=== PATIENT | female | born 1955 | race Caucasian/White ===

== ENCOUNTER 2025-10-05 14:23 | Inpatient (IN) | payer MEDICARE ==
[~2025-10-05] VITALS: Ht 172.7 cm; Wt 74.8 kg
[2025-10-05 15:01] LABS: *BILIRUBIN,URIN NEGATIVE (NEGATIVE); *BLOOD, URINE NEGATIVE (NEGATIVE); *CLARITY,URINE CLEAR (CLEAR); *COLOR,URINE YELLOW (YELLOW); *KETONES,URINE NEGATIVE (NEGATIVE); *PROTEIN,URINE TRACE (NEGATIVE); *UROBILINOGEN,URINE 0.2 E.U./dl (NORMAL); LEUKOCYTE ESTERASE ,URINE NEGATIVE (NEGATIVE); NITRITE, URINE POSITIVE (NEGATIVE); UGLUCOSE NEGATIVE (NEGATIVE)
[2025-10-05 15:10] LABS: *AMPHETAMINE, URINE NEGATIVE (NEGATIVE); *BARBITURATE, URINE NEGATIVE (NEGATIVE); *BENZODIAZEPINE, URINE NEGATIVE (NEGATIVE); *CANNABINOID, URINE NEGATIVE (NEGATIVE); *COCCAINE, URINE NEGATIVE (NEGATIVE); *OPIATE, URINE POSITIVE (NEGATIVE); *PHENCYCLIDINE SCREEN,URINE NEGATIVE (NEGATIVE); FENTANYL, URINE NEGATIVE (NEGATIVE)
[2025-10-05] MEDS ORDERED: CEFTRIAXONE /D5W 50ML IVPB **ER PYXIS IV ONE (15:11)
[2025-10-05 15:13] LABS: SQUAMOUS EPITHELIAL CELL,UR FEW /HPF (NONE SEEN)
[2025-10-05 15:14] LABS: URINE AMORPHOUS URATE MODERATE /HPF
[2025-10-05] MEDS: IV NORMAL SALINE 1000 ML BAG IV ONE (15:16)
[2025-10-05 15:18] LABS: PLATELET COUNT (AUTO) 199 K/uL (179-408); RED BLOOD CELL COUNT(AUTO) 4.60 MIL/uL (3.63-4.92); RED CELL DISTRIBUTION WIDTH 13.1 % (12.3-17.7); WHITE BLOOD COUNT (AUTO) 7.5 K/uL (3.8-11.8)
[2025-10-05 15:32] LABS: CREATININE 0.6 mg/dL (0.6-1.3); SODIUM SERUM 141 mmol/L (136-145); UREA NITROGEN, BLOOD 15 mg/dL (7-18)
[2025-10-05 15:35] LABS: ETHANOL < 3 MG/DL (0-10)
[2025-10-05 15:37] LABS: ASPARTATE AMINOTRANSFERASE 28 U/L (15-37); TOTAL PROTEIN, SERUM 6.9 g/dL (6.4-8.2)
[2025-10-05] MEDS ORDERED: MIRT7.5T10 PO (15:49)
[2025-10-05] MEDS ORDERED: ERGO125010 PO (15:49)
[2025-10-05] MEDS ORDERED: HYDR59LO7 TP (15:49)
[2025-10-05] MEDS ORDERED: BREX0.5T PO (15:49)
[2025-10-05] MEDS ORDERED: [UNRECOGNIZED DRUG - CODE] PO (15:49)
[2025-10-05] MEDS ORDERED: IRON PO (15:49)
[2025-10-05] MEDS ORDERED: LORA-258 PO (15:49)
[2025-10-05] MEDS ORDERED: LEVO50TA8 PO (15:49)
[2025-10-05 16:00] VITALS: BP 112/86
[2025-10-05] MEDS ORDERED: ONDANSETRON 4 MG/2 ML VIAL IV PRN (16:30)
[2025-10-05] MEDS ORDERED: MAGNESIUM HYDROXIDE 30 ML LIQUID UDC PO PRN (16:30)
[2025-10-05] MEDS ORDERED: REMEDY ESSENTIAL ZINC PASTE 113 GM TP PRN (16:30)
[2025-10-05] MEDS: IV 1/2NS 1000 ML 1,000 ML IV PRN (17:00)
[2025-10-05] MEDS ORDERED: BREXPIPRAZOLE 0.5 MG PO SCH (17:00)
[2025-10-05 17:06] VITALS: BP 128/68; TEMP 98.1; O2SAT 94
[2025-10-05] MEDS ORDERED: CLON0.5T4 PO (17:25)
[2025-10-05] MEDS ORDERED: HYDROCORTISONE 2% TOP (17:27)
[2025-10-05 19:10] VITALS: BP 104/65; TEMP 99.3; O2SAT 94
[2025-10-05] MEDS: ENOXAPARIN SODIUM 40 MG/0.4 ML DISP.SYRIN SQ SCH (20:26)
[2025-10-05] MEDS: MIRTAZAPINE 15 MG TABLET PO SCH (20:27)
[2025-10-06] MEDS: LEVOTHYROXINE SODIUM 50 MCG TABLET PO SCH (06:24)
[2025-10-06] MEDS: PANTOPRAZOLE SODIUM 40 MG TABLET.DR PO SCH (06:24)
[2025-10-06 07:19] LABS: PLATELET COUNT (AUTO) 163 K/uL (179-408); RED BLOOD CELL COUNT(AUTO) 4.27 MIL/uL (3.63-4.92); RED CELL DISTRIBUTION WIDTH 13.0 % (12.3-17.7); WHITE BLOOD COUNT (AUTO) 4.8 K/uL (3.8-11.8)
[2025-10-06 07:30] LABS: CREATININE 0.6 mg/dL (0.6-1.3); SODIUM SERUM 141.0 mmol/L (136-145); UREA NITROGEN, BLOOD 9.0 mg/dL (7-18)
[2025-10-06 08:00] VITALS: BP 119/73; TEMP 98.6; O2SAT 97
[2025-10-06] MEDS ORDERED: FERROUS SULFATE SLOW RELEASE 45 MG (ELEMENTAL) TABEC PO SCH (09:00)
[2025-10-06 11:08] VITALS: BP 120/72; TEMP 98.7; O2SAT 96
[2025-10-06] MEDS: FERROUS SULFATE 300 MG/5 ML LIQUID UDC PO SCH (11:18)
[2025-10-06 15:12] VITALS: BP 115/72; TEMP 98.8; O2SAT 96
[2025-10-06] MEDS: ACETAMINOPHEN 325 MG TABLET PO PRN (15:29)
[2025-10-06 19:40] VITALS: BP 132/63; TEMP 98.4; O2SAT 96
[2025-10-07 00:27] VITALS: BP 129/68; TEMP 98.8; O2SAT 100
[2025-10-07 04:39] VITALS: BP 116/64; TEMP 99.5; O2SAT 96
[2025-10-07 06:45] LABS: PLATELET COUNT (AUTO) 184 K/uL (179-408); RED BLOOD CELL COUNT(AUTO) 4.49 MIL/uL (3.63-4.92); RED CELL DISTRIBUTION WIDTH 13.3 % (12.3-17.7); WHITE BLOOD COUNT (AUTO) 5.8 K/uL (3.8-11.8)
[2025-10-07 06:58] LABS: CREATININE 0.5 mg/dL (0.6-1.3); SODIUM SERUM 139.0 mmol/L (136-145); UREA NITROGEN, BLOOD 7.0 mg/dL (7-18)
[2025-10-07 08:14] VITALS: BP 128/74; TEMP 97.8; O2SAT 98
[2025-10-07] MEDS: ALPRAZOLAM 0.25 MG TABLET PO PRN (10:19)
[2025-10-07 12:00] VITALS: BP 116/71; TEMP 97.8; O2SAT 95
[2025-10-07 16:07] VITALS: BP 107/61; TEMP 98.9; O2SAT 96
[2025-10-07] MEDS: CLOTRIMAZOLE 1% CREAM 30 GM TUBE TOP SCH (16:36)
[2025-10-07 19:49] VITALS: BP 131/68; TEMP 99.5; O2SAT 97
[2025-10-08 00:12] VITALS: BP 118/73; TEMP 98.5; O2SAT 93
[2025-10-08 04:48] VITALS: BP 126/66; TEMP 97.6; O2SAT 97
[2025-10-08 07:40] VITALS: BP 117/49; TEMP 98.5; O2SAT 98
[2025-10-08 11:44] VITALS: BP 121/68; TEMP 97.8; O2SAT 97
[2025-10-08 15:48] VITALS: BP 143/84; TEMP 97.7; O2SAT 98
[2025-10-08 19:15] VITALS: BP 126/91; TEMP 98.3; O2SAT 97
[2025-10-09 00:40] VITALS: BP 139/92; TEMP 97.5; O2SAT 98
[2025-10-09 03:46] VITALS: BP 155/82; TEMP 97.5; O2SAT 92
[2025-10-09 07:29] LABS: PLATELET COUNT (AUTO) 227 K/uL (179-408); RED BLOOD CELL COUNT(AUTO) 4.64 MIL/uL (3.63-4.92); RED CELL DISTRIBUTION WIDTH 13.0 % (12.3-17.7); WHITE BLOOD COUNT (AUTO) 7.0 K/uL (3.8-11.8)
[2025-10-09 07:53] LABS: CREATININE 0.5 mg/dL (0.6-1.3); SODIUM SERUM 144.0 mmol/L (136-145); UREA NITROGEN, BLOOD 6.0 mg/dL (7-18)
[2025-10-09 08:00] VITALS: BP 126/75; TEMP 97.6; O2SAT 98
[2025-10-09 12:00] VITALS: BP 146/78; TEMP 97.2; O2SAT 98
[2025-10-09 16:00] VITALS: BP 129/83; TEMP 97.6; O2SAT 97
[2025-10-09 20:00] VITALS: BP 118/86; TEMP 99.2; O2SAT 98
[2025-10-10] VITALS: BP 119/75; TEMP 98.7; O2SAT 100
[2025-10-10 04:00] VITALS: BP 145/67; TEMP 97.2; O2SAT 96
[2025-10-10 08:26] VITALS: BP 105/58; TEMP 98.2; O2SAT 95
[2025-10-10 11:23] VITALS: BP_SYST 141; BP_SYST 171; BP_DIAS 83; BP_DIAS 85; TEMP 98.4; O2SAT 95
[2025-10-10 16:18] VITALS: BP 118/79; TEMP 98.6; O2SAT 94
[2025-10-10 21:43] VITALS: BP 129/76; TEMP 98.6; O2SAT 96
[2025-10-11 07:02] LABS: PLATELET COUNT (AUTO) 248 K/uL (179-408); RED BLOOD CELL COUNT(AUTO) 4.56 MIL/uL (3.63-4.92); RED CELL DISTRIBUTION WIDTH 12.8 % (12.3-17.7); WHITE BLOOD COUNT (AUTO) 6.4 K/uL (3.8-11.8)
[2025-10-11 07:06] LABS: CREATININE 0.6 mg/dL (0.6-1.3); SODIUM SERUM 142.0 mmol/L (136-145); UREA NITROGEN, BLOOD 8.0 mg/dL (7-18)
[2025-10-11 07:17] VITALS: BP 135/78; TEMP 97.3; O2SAT 98
[2025-10-11 08:00] VITALS: BP 94/59; TEMP 97.6; O2SAT 93
[2025-10-11] MEDS: ERGOCALCIFEROL 50,000 UNIT CAPSULE PO SCH (09:13)
[2025-10-11 12:00] VITALS: BP 130/65; TEMP 97.9; O2SAT 95
[2025-10-11 16:00] VITALS: BP 108/46; TEMP 98.3; O2SAT 95
[2025-10-11 19:14] VITALS: BP 99/54; TEMP 97.5; O2SAT 96
[2025-10-12 05:29] VITALS: BP 127/83; TEMP 99; O2SAT 96
[2025-10-12 06:55] LABS: PLATELET COUNT (AUTO) 293 K/uL (179-408); RED BLOOD CELL COUNT(AUTO) 4.46 MIL/uL (3.63-4.92); RED CELL DISTRIBUTION WIDTH 13.2 % (12.3-17.7); WHITE BLOOD COUNT (AUTO) 5.5 K/uL (3.8-11.8)
[2025-10-12 07:17] LABS: CREATININE 0.6 mg/dL (0.6-1.3); SODIUM SERUM 139.0 mmol/L (136-145); UREA NITROGEN, BLOOD 9.0 mg/dL (7-18)
[2025-10-12 12:00] VITALS: BP 117/86; TEMP 97.6; O2SAT 95
[2025-10-12 15:03] LABS: *BILIRUBIN,URIN NEGATIVE (NEGATIVE); *BLOOD, URINE NEGATIVE (NEGATIVE); *CLARITY,URINE CLEAR (CLEAR); *COLOR,URINE YELLOW (YELLOW); *KETONES,URINE NEGATIVE (NEGATIVE); *PROTEIN,URINE TRACE (NEGATIVE); *UROBILINOGEN,URINE 0.2 E.U./dl (NORMAL); LEUKOCYTE ESTERASE ,URINE NEGATIVE (NEGATIVE); NITRITE, URINE NEGATIVE (NEGATIVE); UGLUCOSE NEGATIVE (NEGATIVE)
== END 2025-10-12 15:20 | disposition home health service (06) | DRG 91 ==
LOC: ER 14:23 → MEDSURG3 16:37 → TELE3 20:35 → MEDSURG3 10-11 11:20
PROVIDERS: ADMIT Student in an Organized Health Care Education/Training Program; ATTEND Student in an Organized Health Care Education/Training Program
DX: G92.8 Other toxic encephalopathy (principal); G93.41 Metabolic encephalopathy; E44.0 Moderate protein-calorie malnutrition; Z66 Do not resuscitate; F03.92 Unspecified dementia, unspecified severity, with psychotic disturbance; Z78.1 Physical restraint status; N39.0 Urinary tract infection, site not specified; E03.9 Hypothyroidism, unspecified; T40.2X5A Adverse effect of other opioids, initial encounter; Y92.099 Unspecified place in other non-institutional residence as the place of occurrence of the external cause; Z87.440 Personal history of urinary (tract) infections; R33.9 Retention of urine, unspecified; E61.1 Iron deficiency; Z79.890 Hormone replacement therapy; Z79.899 Other long term (current) drug therapy
CPT/HCPCS: 36415; 70450; 71045; 83605; 83735; 84100; 84443; 84484; 85025; 85730; 87040; 87077; 87086; 93005; A4606; A6213; G0378; G0480; J0696; J1650; J7040